=== PATIENT | male | born 1950 | race Caucasian/White ===

== ENCOUNTER 2016-11-12 13:03 | Emergency (ER) | payer MEDICARE ==
[~2016-11-12] VITALS: Ht 180.3 cm; Wt 90.0 kg
[2016-11-12 13:16] VITALS: BP 188/109
[2016-11-12] MEDS ORDERED: LIDOCAINE 1%, 20ML SQ ONE (14:00)
[2016-11-12] MEDS ORDERED: LIDOCAINE 1%, 20ML ONE (14:00)
== END 2016-11-12 14:25 | disposition home or self-care (01) ==
LOC: ED 14:19
DX: S60.022A Contusion of left index finger without damage to nail, initial encounter (principal); I10 Essential (primary) hypertension; E11.9 Type 2 diabetes mellitus without complications; F17.210 Nicotine dependence, cigarettes, uncomplicated; X58.XXXA Exposure to other specified factors, initial encounter; Y93.89 Activity, other specified; Y92.009 Unspecified place in unspecified non-institutional (private) residence as the place of occurrence of the external cause; Y99.9 Unspecified external cause status
CPT/HCPCS: 11740; 99284